=== PATIENT | female | born 1945 | race Caucasian/White ===

== ENCOUNTER → 2018-10-19 | Outpatient (CLI) | payer MEDICARE ==
--- NOTE | 2018-10-19 23:33 | MR ---
EXAMINATION TYPE: MR lumbar spine wo con DATE OF EXAM: 10/19/2018 COMPARISON: None HISTORY: Lumbago with sciatica, bilateral TECHNIQUE: Multiplanar, multisequence images of the lumbar spine were acquired. Lumbar vertebra have normal alignment. Disc spaces are fairly normal. The neuroforamina are fairly we ll-maintained. There is no compression fracture. Posterior elements are intact. I see no fracture. Th ere is no lumbar paraspinal mass. Sacroiliac joints are not well seen. I see no focal bone destructio n. Lumbar nerve roots appear normal. IMPRESSION: Negative MR scan of the lumbar spine. Spine appears fairly normal for age.. Minor degenerative disc s ignal changes. No spinal stenosis.
== END ==
LOC: RADMRIMAIN 14:55
PROVIDERS: ATTEND Family Medicine
DX: M51.36 Other intervertebral disc degeneration, lumbar region (principal)
CPT/HCPCS: 72148

== ENCOUNTER → 2021-08-01 | Outpatient (CLI) | payer MEDICARE ==
--- NOTE | 2021-08-01 09:54 | MR ---
MRI CERVICAL SPINE: CLINICAL HISTORY: Cervicalgia. TECHNIQUE: Multiplanar, multisequence imaging of the cervical spine is performed without and with IV contrast, 7 cc of gadolinium was given intravenously. COMPARISON: None. FINDINGS: Slight scoliotic curvature and coronal images. Sagittal images of the cervical spine show t he craniocervical junction to appear within normal limits. The cervical and upper thoracic spinal co rd is normal in course, caliber, and signal. Artifact from anterior fusion plate C5-C7 levels is pres ent. The vertebral body and intravertebral disk heights are normal above and below surgical levels. The bone marrow signal intensity is within normal limits above and below surgical levels. No suspici ous postcontrast enhancement. Axial images show C2-C3 level to appear within normal limits. Axial images at C3-C4 level shows a left paracentral disc protrusion and some uncovertebral facet spu rring, there is effacement of the left anterolateral thecal sac and asymmetric [id number] left- sided neural foraminal narrowing. Axial images at C4-C5 level showed broad based left paracentral disc protrusion effacing anterolatera l thecal sac and causing moderate to severe left-sided neural foraminal narrowing. Patent right-sided neural foramina. Axial images at C5-C6 and C6-C7 levels show artifact from surgical change and probable metallic disc material. Spinal canal is preserved in bilateral neural foramina are patent. Axial images at C7-T1 levels appear within normal limits. IMPRESSION: Surgical change C5-C7 levels with satisfactory alignment. Some degenerative changes C3-C4 and C4-C5 level are seen as detailed above.
== END | disposition home or self-care (01) ==
LOC: RADMRIMAIN 08:05
PROVIDERS: ATTEND Orthopaedic Surgery Orthopaedic Surgery of the Spine
DX: M47.812 Spondylosis without myelopathy or radiculopathy, cervical region (principal); M50.221 Other cervical disc displacement at C4-C5 level; M99.71 Connective tissue and disc stenosis of intervertebral foramina of cervical region
CPT/HCPCS: 72156; A9585

== ENCOUNTER → 2021-09-19 | Outpatient (CLI) | payer MEDICARE | END | disposition home or self-care (01) | LOC: LABWHC1 11:01 | PROVIDERS: ATTEND Surgery Plastic and Reconstructive Surgery | DX: Z20.822 Contact with and (suspected) exposure to COVID-19 (principal) | CPT/HCPCS: U0003; C9803; U0005 ==

== ENCOUNTER 2021-09-24 07:58 | Day surgery (SDC) | payer MEDICARE ==
[2021-08-08 15:47] VITALS: BMI 27.4
--- NOTE | 2021-09-24 07:49 | P.GSHP ---
History of Present Illness H&P Date: 09/24/21 CHIEF COMPLAINT: Colon screen HISTORY OF PRESENT ILLNESS: The patient is a 76-year-old female who presents for colon screen. Lower endoscopy was offered for further evaluation and management. PAST MEDICAL HISTORY: Please see list. PAST SURGICAL HISTORY: Please see list. MEDICATIONS: Please see list. ALLERGIES: Please see list. SOCIAL HISTORY: No illicit drug use FAMILY HISTORY: No reports of Crohn disease or ulcerative colitis. REVIEW OF ORGAN SYSTEMS: CONSTITUTIONAL: No reports of fevers or chills. PHYSICAL EXAM: VITAL SIGNS: Stable GENERAL: Well-developed pleasant in no acute distress. HEENT: No scleral icterus. Extraocular movements grossly intact. Moist buccal mucosa. NECK: Supple without lymphadenopathy. CHEST: Unlabored respirations. Equal bilateral excursions. CARDIOVASCULAR: Regular rate and rhythm. Distal 2+ pulses. ABDOMEN: Soft, nontender, nondistended. MUSCULOSKELETAL: No clubbing, cyanosis, or edema. ASSESSMENT: 1. Colon screen. PLAN: 1. Recommend proceeding with a lower endoscopy Past Medical History Past Medical History: GERD/Reflux, Hyperlipidemia Additional Past Medical History / Comment(s): HX COVID 2020, hx migraines, loose stools. History of Any Multi-Drug Resistant Organisms: None Reported Additional Past Surgical History / Comment(s): Hemmorhoidectomy, 3 cadaver bones in neck. Past Anesthesia/Blood Transfusion Reactions: Motion Sickness Past Psychological History: No Psychological Hx Reported Smoking Status: Never smoker Past Alcohol Use History: None Reported Past Drug Use History: None Reported - Past Family History Mother Family Medical History: No Reported History Medications and Allergies Home Medications Medication Instructions Recorded Confirmed Type Calcium Carbonate [Calcium] 1,200 mg PO DAILY 08/08/21 09/18/21 History Cyanocobalamin (Vitamin B-12) 1,500 mcg PO DAILY 08/08/21 09/18/21 History [Vitamin B-12] Cyclobenzaprine [Flexeril] 10 mg PO HS 08/08/21 09/18/21 History Gabapentin [Neurontin] 100 mg PO HS 08/08/21 09/18/21 History Ibuprofen/Diphenhydramine Cit 1 each PO HS 08/08/21 09/18/21 History [Ibuprofen Pm Caplet] Potassium Gluconate [Potassium 99 mg PO DAILY 08/08/21 09/18/21 History Gluconate ER] Vitamin D Tab 1 tab PO DAILY 08/08/21 09/18/21 History Allergies Allergy/AdvReac Type Severity Reaction Status Date / Time erythromycin base AdvReac muscle pain Verified 09/18/21 14:22 [From Staticin] ethyl alcohol [From Staticin] AdvReac muscle pain Verified 09/18/21 14:22
[~2021-09-24 07:58] MED LIST: LACTATED RINGERS 1,000 ML IV SCH; LIDOCAINE 1% (10MG/ML) FOR IV START INTRADERMA PRN
[2021-09-24 08:30] VITALS: TEMP 97.9
[2021-09-24] MEDS ORDERED: LIDOCAINE 1% INJ 10MG/ML (20 ML MDV) ONE (08:54)
[2021-09-24] MEDS ORDERED: PROPOFOL 10 MG/ML 20 ML VIAL IV ONE (08:54)
--- NOTE | 2021-09-24 09:32 | P.PCN ---
Date of Procedure: 09/24/21 Description of Procedure: PREOPERATIVE DIAGNOSIS: Personal history colon polyps Colonoscopy screening. POSTOPERATIVE DIAGNOSIS: Personal history colon polyps Colonoscopy screening. Sigmoid diverticulosis OPERATION: Colonoscopy to the cecum, ileocecal valve and appendiceal orifice. SURGEON: Sandie Hernandez MD. ANESTHESIA: MAC. INDICATIONS: The patient is a 76-year-old female who presents for colonoscopy screening. Last colonoscopy 3 years ago. Benefits and risks were described and informed consent was obtained. DESCRIPTION OF PROCEDURE: The patient had undergone Sutab prep. The patient had been brought into the operating room and laid in the left lateral decubitus position. After adequate intravenous sedation, the rectum was examined with 2% lidocaine jelly. No external hemorrhoids were encountered. The rectal tone was within normal limits. No lesions were palpated in the rectal vault. An Olympus colonoscope was advanced until the cecum, ileocecal valve and appendiceal orifice were clearly viewed. The prep was excellent. Severe sigmoid and diverticulosis was encountered. No colonic polyps were found. No evidence of focal colitis was found. Retroflexion of the scope demonstrated grade 1 internal hemorrhoids without active bleeding or inflammation. The colon was desufflated. The patient had tolerated the procedure well. Withdrawal time was over 6 minutes. FINDINGS: Aronchick preparation quality scale 1 (1-5) Internal hemorrhoids, grade 1 No external prolapsed hemorrhoids. No arteriovenous malformations. No adenomatous polyps. Severe sigmoid diverticulosis Redundant sigmoid colon requiring abdominal wall pressure. No focal colitis. RECOMMENDATIONS: Lower endoscopy in 5 years, 2026 Plan - Discharge Summary Discharge Rx Participant: No New Discharge Prescriptions: Continue Gabapentin [Neurontin] 100 mg PO HS Potassium Gluconate [Potassium Gluconate ER] 99 mg PO DAILY Vitamin D Tab 1 tab PO DAILY Cyclobenzaprine [Flexeril] 10 mg PO HS Ibuprofen/Diphenhydramine Cit [Ibuprofen Pm Caplet] 1 each PO HS Cyanocobalamin (Vitamin B-12) [Vitamin B-12] 1,500 mcg PO DAILY Calcium Carbonate [Calcium] 1,200 mg PO DAILY Discharge Medication List Calcium Carbonate [Calcium] 1,200 mg PO DAILY 08/08/21 [History] Cyanocobalamin (Vitamin B-12) [Vitamin B-12] 1,500 mcg PO DAILY 08/08/21 [History] Cyclobenzaprine [Flexeril] 10 mg PO HS 08/08/21 [History] Gabapentin [Neurontin] 100 mg PO HS 08/08/21 [History] Ibuprofen/Diphenhydramine Cit [Ibuprofen Pm Caplet] 1 each PO HS 08/08/21 [History] Potassium Gluconate [Potassium Gluconate ER] 99 mg PO DAILY 08/08/21 [History] Vitamin D Tab 1 tab PO DAILY 08/08/21 [History] Follow up Appointment(s)/Referral(s): Sandie Hernandez MD [STAFF PHYSICIAN] - As Needed Patient Instructions/Handouts: Diverticulosis Diet (GEN), Diverticulosis (DC) Activity/Diet/Wound Care/Special Instructions: Repeat colonoscopy in 5 years, 2026 Discharge Disposition: HOME SELF-CARE
[2021-09-24 09:54] VITALS: BP 153/78; PULSE 84; RESP 20
== END 2021-09-24 10:36 | disposition home or self-care (01) ==
LOC: ORWHC2ENDO 07:58
PROVIDERS: ATTEND Surgery Plastic and Reconstructive Surgery
DX: Z12.11 Encounter for screening for malignant neoplasm of colon (principal); Z86.010 Personal history of colon polyps; K57.30 Diverticulosis of large intestine without perforation or abscess without bleeding; K64.0 First degree hemorrhoids; K21.9 Gastro-esophageal reflux disease without esophagitis; E78.5 Hyperlipidemia, unspecified; Z86.16 Personal history of COVID-19; G43.909 Migraine, unspecified, not intractable, without status migrainosus; Z98.890 Other specified postprocedural states; Z88.1 Allergy status to other antibiotic agents; Z79.1 Long term (current) use of non-steroidal anti-inflammatories (NSAID); Z79.899 Other long term (current) drug therapy; R19.7 Diarrhea, unspecified
CPT/HCPCS: J2001; J2704; G0105

== ENCOUNTER → 2024-11-27 | Outpatient (CLI) | payer MEDICARE ==
--- NOTE | 2024-11-27 09:31 | NM ---
EXAMINATION TYPE: NM hepatobiliary w EF DATE OF EXAM: 11/27/2024 9:06 AM COMPARISON: None CLINICAL INDICATION:Female, 79 years old with history of K57.32 DVTRCLI OF LG INT W/O PERFORATION OR ABSCES; TECHNIQUE: The patient was given 4.91 mCi of Technetium 99m-Mebrofenin as a radiotracer and multiple scintigraphic images were obtained of the abdomen. Gallbladder function was also assessed after the administration of ensure drink and additional scintigraphic images were obtained of the abdomen. A re gion of interest was drawn over the gallbladder and a timing activity curve was generated. The gallbl adder ejection fraction was calculated. FINDINGS: Normal uptake of radiotracer was identified within the liver with excretion into the hepatic and comm on biliary ducts within 12 min. There was normal progressive washout of the liver over the course of the study. Radiotracer uptake within the gallbladder at 24 minutes as well as small bowel activity wa s identified at 18 minutes. Maximum calculated gallbladder ejection fraction is: 84% at 30 minutes (Normal gallbladder ejection fraction is > 35%) IMPRESSION: 1. Normal hepatobiliary scan. 2. Normal ejection fraction. [facility], , 11/27/2024 9:29 AM
== END | disposition home or self-care (01) ==
LOC: RADNMMAIN 06:49
PROVIDERS: ATTEND Surgery Plastic and Reconstructive Surgery
DX: K57.32 Diverticulitis of large intestine without perforation or abscess without bleeding (principal)
CPT/HCPCS: 78226; A9537

== ENCOUNTER 2024-11-30 09:33 | Day surgery (SDC) | payer MEDICARE ==
[2024-11-28 13:18] VITALS: BMI 25.9
--- NOTE | 2024-11-30 08:35 | P.GSHP ---
History of Present Illness H&P Date: 11/30/24 CHIEF COMPLAINT: GERD and colon screen HISTORY OF PRESENT ILLNESS: The patient is a 79-year-old female who presents with gastroesophageal reflux disease and need for colon screen. Upper and lower endoscopy were offered for further evaluation and management. PAST MEDICAL HISTORY: Please see list. PAST SURGICAL HISTORY: Please see list. MEDICATIONS: Please see list. ALLERGIES: Please see list. SOCIAL HISTORY: No illicit drug use FAMILY HISTORY: No reports of Crohn disease or ulcerative colitis. REVIEW OF ORGAN SYSTEMS: CONSTITUTIONAL: No reports of fevers or chills. GI: Denies any blood in stools or constipation. PHYSICAL EXAM: VITAL SIGNS: Stable GENERAL: Well-developed pleasant in no acute distress. HEENT: No scleral icterus. Extraocular movements grossly intact. Moist buccal mucosa. NECK: Supple without lymphadenopathy. CHEST: Unlabored respirations. Equal bilateral excursions. CARDIOVASCULAR: Regular rate and rhythm. Distal 2+ pulses. ABDOMEN: Soft, nondistended. MUSCULOSKELETAL: No clubbing, cyanosis, or edema. ASSESSMENT: 1. Gastroesophageal reflux disease 2. Colon screen. PLAN: 1. Recommend proceeding with an upper and lower endoscopy Past Medical History Past Medical History: GERD/Reflux, Hyperlipidemia Additional Past Medical History / Comment(s): HX COVID 2020, hx migraines, loose stools. History of Any Multi-Drug Resistant Organisms: None Reported Past Surgical History: Tonsillectomy Additional Past Surgical History / Comment(s): Hemorrhoidectomy, Cadaver bones to cervical neck from several falls. Past Anesthesia/Blood Transfusion Reactions: No Reported Reaction, Motion Sickness Smoking Status: Never smoker - Past Family History Mother Family Medical History: No Reported History Medications and Allergies Home Medications Medication Instructions Recorded Confirmed Type No Known Home Medications 11/28/24 11/28/24 History Allergies Allergy/AdvReac Type Severity Reaction Status Date / Time erythromycin base AdvReac muscle pain Verified 09/18/21 14:22 [From Staticin] ethyl alcohol [From Staticin] AdvReac muscle pain Verified 09/18/21 14:22
[~2024-11-30 09:33] MED LIST changes: -LACTATED RINGERS 1,000 ML IV SCH
[2024-11-30 10:00] VITALS: TEMP 98.4
[2024-11-30] MEDS: IV FLUID CONTINUATION 1,000 ML IV ONE (10:05)
[2024-11-30] MEDS: LACTATED RINGERS 1,000 ML IV SCH (10:05)
[2024-11-30] MEDS ORDERED: PROPOFOL 10 MG/ML 20 ML VIAL IV ONE (11:14)
[2024-11-30] MEDS ORDERED: LIDOCAINE 1% INJ 10MG/ML (20 ML MDV) ONE (11:14)
--- NOTE | 2024-11-30 11:56 | P.PCN ---
Date of Procedure: 11/30/24 Description of Procedure: PREOPERATIVE DIAGNOSIS: Diverticulosis POSTOPERATIVE DIAGNOSIS: Sigmoid diverticulosis with bowel obstruction External hemorrhoid, grade 3 OPERATION: Colonoscopy to the sigmoid colon. SURGEON: Sandie Hernandez MD. ANESTHESIA: MAC. INDICATIONS: The patient is a 79-year-old female who presents with diverticulosis no change in bowel habits and abdominal pain benefits and risks were described and informed consent was obtained. DESCRIPTION OF PROCEDURE: The patient had undergone Suprep. She had been brought into the operating room and laid in the left lateral decubitus position. After adequate intravenous sedation, the rectum was examined with 2% lidocaine jelly. External hemorrhoids were encountered. The rectal tone was loose. No lesions were palpated in the rectal vault. An Olympus colonoscope was advanced along the rectum to a very tortuous sigmoid colon with multiple pockets of sigmoid diverticulosis and partial obstruction 30 cm. The scope was then exchanged for a pediatric colonoscope. Despite multiple maneuvers, the sigmoid colon had severe tortuosity preventing further advancement of scope. The scope was passed to 30 cm from the anal verge. No evidence of polyps were identified. As the patient posed high risk for perforation with persistence of the procedure, the procedure was discontinued. The colon was desufflated. The patient had tolerated the procedure well. Withdrawal time was over 6 minutes. FINDINGS: Aronchik preparation quality scale 1 (1-5) Tortuous sigmoid colon with stricture and severe diverticulosis preventing further advancement of the scope. External prolapsed hemorrhoids, grade 3 Internal hemorrhoid, grade 1 Scope advanced to sigmoid colon at 30 cm. No arteriovenous malformations to sigmoid colon No adenomatous polyps to sigmoid colon No focal colitis the sigmoid colon RECOMMENDATIONS: Completion of colonoscopy evaluation with barium enema.
--- NOTE | 2024-11-30 12:12 | P.PCN ---
Date of Procedure: 11/30/24 Description of Procedure: PREOPERATIVE DIAGNOSIS: Gastroesophageal reflux disease Dysphagia POSTOPERATIVE DIAGNOSIS: Lower esophageal stenosis Gastritis Diaphragmatic hiatal hernia OPERATION: Esophagogastroduodenoscopy with balloon dilation, 20 mm balloon. Esophagogastroduodenoscopy with cold forceps biopsies stomach/antrum, esophagus, duodenum SURGEON: Sandie Hernandez MD ANESTHESIA: MAC. INDICATIONS: The patient is a 53-year-old male who presents with a history of gastroesophageal reflux disease with abdominal pain. Benefits and risks of the procedure were described. Informed consent was obtained. DESCRIPTION: The patient was brought into the endoscopy suite and laid in the left lateral decubitus position. After a timeout was confirmed, the procedure was initiated. An Olympus gastroscope was passed into the posterior oropharynx where an upper esophageal stenosis was identified. The scope was passed down to the distal esophagus. To address the upper esophageal stenosis, rigid dilator over guidewire was selected. Next using an [place] rigid dilator, a guidewire was placed through the gastroscope. Next the scope was withdrawn. A 20 mm [employer] balloon was used to dilate the lower esophageal sphincter for distal esophageal spasm/stenosis. Within the stomach, gastritis with gastric ulcerations were identified along the body of the stomach with cold forceps biopsies obtained. The lower esophageal valve was evaluated with Hill grade 2 lower esophageal valve. LA grade B erosive esophagitis was identified. No full-thickness injury was encountered. The GI tract was desufflated. Then the procedure, patient had acute esophageal/bronchial spasms requiring airbag mask ventilation which resolved. The patient tolerated the procedure well. FINDINGS: Upper esophageal stenosis dilated 57-Indian rigid dilator Diaphragmatic hiatus at 40 cm from the incisors Squamocolumnar junction 42 cm from the incisors. Gastritis along the gastric body and fundus cold forceps biopsies obtained Duodenum with biopsies obtained LA grade B erosive esophagitis. Biopsies obtained Hill grade 3 lower esophageal valve. RECOMMENDATIONS: Upper endoscopy as needed Plan - Discharge Summary Discharge Rx Participant: Yes New Discharge Prescriptions: Continue No Known Home Medications Discharge Medication List No Known Home Medications 11/28/24 [History] Follow up Appointment(s)/Referral(s): Sandie Hernandez MD [STAFF PHYSICIAN] - 12/19/24 10:30 am Patient Instructions/Handouts: Barium Enema (ED), Diverticulosis Diet (GEN), Esophageal Dilation (DC) Activity/Diet/Wound Care/Special Instructions: Avoid seeds, popcorn, peanuts, nuts, tomatoes, cucumbers seeds, cells Discharge Disposition: HOME SELF-CARE
[2024-11-30 12:48] VITALS: BP 147/77; PULSE 75; RESP 18
--- NOTE | 2024-11-30 13:08 | P.PN ---
Progress Note - Text Progress Note Date: 11/30/24 Due to large bowel obstruction identified, semiurgent colectomy described. Patient has not had a cardiac risk assessment. Twelve-lead EKG ordered. I personally contacted patient's primary care provider regarding authorization for cardiac risk assessment. Additional studies for gallbladder disease including ultrasound, CT of the abdomen pelvis for diverticulitis are pending as well.
== END 2024-11-30 13:09 | disposition home or self-care (01) ==
LOC: ORWHC2ENDO 09:33
PROVIDERS: ATTEND Surgery Plastic and Reconstructive Surgery
DX: K29.50 Unspecified chronic gastritis without bleeding (principal); K56.699 Other intestinal obstruction unspecified as to partial versus complete obstruction; K57.30 Diverticulosis of large intestine without perforation or abscess without bleeding; K64.4 Residual hemorrhoidal skin tags; K21.9 Gastro-esophageal reflux disease without esophagitis; K22.2 Esophageal obstruction; K44.9 Diaphragmatic hernia without obstruction or gangrene; Z88.1 Allergy status to other antibiotic agents; E78.5 Hyperlipidemia, unspecified
CPT/HCPCS: 88305; 43239; 45330; 43249; J2003; J2704; C1726

== ENCOUNTER → 2024-12-01 | Outpatient (CLI) | payer MEDICARE ==
--- NOTE | 2025-02-05 12:39 | FL ---
EXAMINATION TYPE: FL barium enema DATE OF EXAM: 12/01/2024 COMPARISON: CLINICAL INDICATION: Female, 79 years old with history of K56.609 UNSP INTESTNL OBST, UNSP TO PART IAL DENA; PH[facility], TECHNIQUE: A air contrast barium enema study is performed. A total of 91 seconds of fluoroscopic ti me was utilized during procedure and images obtained. Total dose area product (DAP) in uGy*m?, mGy*c m? (or similar): . FINDINGS: Metallurgical Engineering Technician view of the abdomen shows overall non-obstructive bowel gas pattern. No evidence of any mass or polyp, obstructing or constricting lesion throughout the colon. Moderate s igmoid diverticulosis as well as scattered diverticula throughout the colon. Circular muscle hypertro phy within the region of the sigmoid colon. Appendix was filled and appeared normal. The terminal il eum was refluxed and appears within normal limits. IMPRESSION: Diverticulosis without diverticulitis. Otherwise unremarkable study. [facility], , 12/01/2024 11:48 AM
== END | disposition home or self-care (01) ==
LOC: RADFLMAIN 07:23
PROVIDERS: ATTEND Surgery Plastic and Reconstructive Surgery
DX: K56.609 Unspecified intestinal obstruction, unspecified as to partial versus complete obstruction (principal)
CPT/HCPCS: 74270

== ENCOUNTER → 2024-12-05 | Outpatient (CLI) | payer MEDICARE ==
--- NOTE | 2024-12-05 08:01 | US ---
EXAMINATION TYPE: US gallbladder DATE OF EXAM: 12/05/2024 COMPARISON: NONE CLINICAL INDICATION: Female, 79 years old with history of K57.32 DVTRCLI OF LG INT W/O PERFORATION OR ABSCES; RUQ pain TECHNIQUE: Grayscale and color Doppler imaging of the right upper quadrant. FINDINGS: EXAM MEASUREMENTS: Liver Length: 12..9 cm Gallbladder Wall: 0.2 cm CBD: 0.4 cm, color Doppler imaging was utilized to isolate the common bile duct for measurement. Right Kidney: 10.5x3.4x5.2 cm CHIEF BUSINESS OFFICER NOTES: Pancreas: Tail obscured by overlying bowel gas Liver: no abnormalities seen Gallbladder: No stones seen Evidence for sonographic Conrad's sign: No CBD: wnl Right Kidney: Anechoic area seen (sup): 2.5x1.9x2.5cm IMPRESSION: 1. Superior pole right renal cyst [facility], , 12/05/2024 7:59 AM
[2024-12-05 08:31] LABS: African American GFR (CKD) 82 (>60 ml/min/1.73 sqM); Blood Urea Nitrogen 14 mg/dL (7-17); Non-African American GFR(CKD) 72 (>60 ml/min/1.73 sqM)
--- NOTE | 2024-12-06 18:17 | CT ---
EXAMINATION TYPE: CT abdomen pelvis w con DATE OF EXAM: 12/05/2024 9:23 AM COMPARISON: None. CLINICAL INDICATION: Female, 79 years old with history of R10.11 RUQ PAIN, RUQ PAIN TECHNIQUE: Axial images were obtained from above the diaphragm to the pubic rami in the axial plane a t 5 mm thick sections. Reconstructed images are reviewed on the computer in the coronal plane. CONTRAST: 80 ML mL of Isovue 300. Study performed with Oral Contrast DLP: 522.3 mGycm, Automated exposure control for dose reduction was used. FINDINGS: Limited CT sections are obtained the lung bases. The lung bases are clear. CT ABDOMEN: Liver: Normal Spleen: Normal Pancreas: Normal Adrenal glands: The adrenal glands are normal. Gallbladder: Normal Kidneys: No masses are evident. No hydronephrosis is present. There is a 2.2 cm cyst at the superio r pole posterior medial aspect right kidney. Delayed images were obtained through the kidneys, which remain unremarkable. Aorta: Vascular calcification is within the aorta. Inferior vena cava: Normal. CT PELVIS: Multiple phleboliths are within the pelvis Loops of bowel within the abdomen and pelvis are normal. Diverticular changes of the sigmoid colon. N o adjacent inflammatory changes to suggest acute diverticulitis is evident. There are loops of bow el which are incompletely distended or lack oral contrast limiting their evaluation. Appendix: Normal as visualized. Urinary bladder: Normal. Genitourinary structures: Uterus is unremarkable. Adnexa are normal. Osseous structures: No suspicious lytic or sclerotic lesions. IMPRESSION: 1. Diverticulosis without acute diverticulitis. 2. Superior right renal cyst [facility], , 12/06/2024 6:14 PM
== END | disposition home or self-care (01) ==
LOC: RADUSWWP 07:05
PROVIDERS: ATTEND Surgery Plastic and Reconstructive Surgery
DX: K57.32 Diverticulitis of large intestine without perforation or abscess without bleeding (principal); N28.1 Cyst of kidney, acquired
CPT/HCPCS: 82565; 84520; 76705; 74177; 36415; Q9967

== ENCOUNTER 2025-01-11 08:47 | Emergency (ER) | payer MEDICARE ==
[2025-01-11 10:07] LABS: Basophils # (A) 0.05 10*3/uL (0.00-0.10); Basophils % (A) 0.7 %; Eosinophils # (A) 0.23 10*3/uL (0.04-0.35); Eosinophils % (A) 3.4 %; HCT 36.4 % (37.2-46.3); HGB 12.1 g/dL (12.0-15.0); Lymphocytes # (A) 2.05 10*3/uL (0.90-5.00); Lymphocytes % (A) 30.2 %; MCH 30.2 pg (27.0-32.0); MCHC 33.2 g/dL (32.0-37.0); MCV 90.8 fL (80.0-97.0); Mean Platelet Volume 9.3 fL (9.5-12.2); Monocytes # (A) 0.44 10*3/uL (0.20-1.00); Monocytes % (A) 6.5 %; Neutrophils % (A) 58.9 %; Platelet Count 351 10*3/uL (140-440); RBC 4.01 10*6/uL (4.10-5.20); RDW 13.5 % (11.5-14.5); WBC 6.79 10*3/uL (4.50-10.00)
--- NOTE | 2025-01-11 10:20 | ED ---
Abdominal Pain HPI - General Chief Complaint: Abdominal Pain Stated Complaint: pre-op CT Time Seen by Provider: 01/11/25 09:03 Source: patient, RN notes reviewed Mode of arrival: ambulatory Limitations: no limitations - History of Present Illness Initial Comments: 79-year-old female presents emergency department complaint of abdominal pain, abdominal bloating. Patient states she is scheduled for surgery at the end of the month with Dr. Hernandez for colonic stricture. Patient states that symptoms are worsening and she was advised to come to emergency department for imaging by her surgeon. Patient denies any fevers or chills she states she did pass some stool today she denies chest pain shortness of breath she states she has not eaten anything since yesterday and still feels very bloated. - Related Data Previous Rx's Medication Instructions Recorded Amoxic-Pot Clav 875-125Mg 1 tab PO Q12HR #20 tab 01/11/25 [Augmentin 875-125] Lactulose [Cephulac] 30 gm PO BID #300 ml 01/11/25 Allergies Allergy/AdvReac Type Severity Reaction Status Date / Time erythromycin base AdvReac muscle pain Verified 11/30/24 09:52 [From Staticin] ethyl alcohol [From Staticin] AdvReac muscle pain Verified 11/30/24 09:52 Review of Systems ROS Statement: Those systems with pertinent positive or pertinent negative responses have been documented in the HPI. ROS Other: All systems not noted in ROS Statement are negative. Past Medical History Past Medical History: GERD/Reflux, Hyperlipidemia Additional Past Medical History / Comment(s): HX COVID 2020, hx migraines, loose stools. History of Any Multi-Drug Resistant Organisms: None Reported Additional Past Surgical History / Comment(s): Hemmorhoidectomy, 3 cadaver bones in neck. Past Anesthesia/Blood Transfusion Reactions: Motion Sickness Past Psychological History: No Psychological Hx Reported Smoking Status: Never smoker - Past Family History Mother Family Medical History: No Reported History General Exam Limitations: no limitations General appearance: alert, in no apparent distress Head exam: Present: atraumatic, normocephalic, normal inspection Eye exam: Present: normal appearance, PERRL, EOMI. Absent: scleral icterus, conjunctival injection, periorbital swelling ENT exam: Present: normal exam, normal oropharynx, mucous membranes moist Neck exam: Present: normal inspection, full ROM. Absent: tenderness, meningismu s, lymphadenopathy Respiratory exam: Present: normal lung sounds bilaterally. Absent: respiratory distress, wheezes, rales, rhonchi, stridor Cardiovascular Exam: Present: regular rate, normal rhythm, normal heart sounds. Absent: systolic murmur, diastolic murmur, rubs, gallop, clicks GI/Abdominal exam: Present: soft, distended, tenderness, normal bowel sounds. Absent: guarding, rebound, rigid Back exam: Absent: CVA tenderness (R), CVA tenderness (L) Neurological exam: Present: alert, oriented X3, CN II-XII intact Skin exam: Present: warm, dry, intact, normal color. Absent: rash Course Vital Signs 01/11/25 01/11/25 08:54 12:38 Temperature 98.8 F 98.2 F Pulse Rate 79 66 Respiratory 20 18 Rate Blood Pressure 167/109 137/70 O2 Sat by Pulse 98 96 Oximetry Medical Decision Making - Medical Decision Making Was pt. sent in by a medical professional or institution (, PA, CLOUD ADMINISTRATOR, urgent care, hospital, or shelter...) When possible be specific @ -Dr. Hernandez surgeon Did you speak to anyone other than the patient for history (EMS, parent, family, police, friend...)? What history was obtained from this source @ -No Did you review nursing and triage notes (agree or disagree)? Why? @ -I reviewed and agree with nursing and triage notes Were old charts reviewed (outside hosp., previous admission, EMS record, old EKG, old radiological studies, urgent care reports/EKG's, shelter records)? Report findings @ -No old charts were reviewed Differential Diagnosis (chest pain, altered mental status, abdominal pain women, abdominal pain men, vaginal bleeding, weakness, fever, dyspnea, syncope, headache, dizziness, GI bleed, back pain, seizure, CVA, palpatations, mental health, musculoskeletal)? @ -Differential Abdominal Pain Women: Appendicitis, Cholecystitis, diverticulosis, ischemic bowel, pancreatitis, hepatitis, UTI, gastroenteritis, AAA, incarcerated hernia, bowel obstruction, constipation, inflammatory bowel, hepatitis, peptic ulcer disease, splenic infarction, perforated viscus, vulvitis, ovarian torsion, PID, kidney stone, placenta abruption, this is not meant to be an all-inclusive list EKG interpreted by me (3pts min.). @None X-rays interpreted by me (1pt min.). @ -None done CT interpreted by me (1pt min.). @ -CT acute abdomen pelvis showing evidence of redundant colon, diverticulosis no obstruction U/S interpreted by me (1pt. min.). @ -None done What testing was considered but not performed or refused? (CT, X-rays, U/S, labs)? Why? @ -None What meds were considered but not given or refused? Why? @ -None Did you discuss the management of the patient with other professionals (prof minnie i.e. , PA, CLOUD ADMINISTRATOR, lab, RT, psych nurse, psychiatric social worker supervisor, nurse extern, teacher, residential care officer, pillowcase cutter)? Give summary @ -Discussed case with Dr. Ngo regarding CT findings and lab work she advised oral antibiotics and lactulose Was smoking cessation discussed for >3mins.? @ -No Was critical care preformed (if so, how long)? @ -No Were there social determinants of health that impacted care today? How? (Homelessness, low income, unemployed, alcoholism, drug addiction, transportation, low edu. Level, literacy, decrease access to med. care, retirement, rehab)? @ -No Was there de-escalation of care discussed even if they declined (Discuss DNR or withdrawal of care, Hospice)? DNR status @ -No What co-morbidities impacted this encounter? (DM, HTN, Smoking, COPD, CAD, Cancer, CVA, ARF, Chemo, Hep., AIDS, mental health diagnosis, sleep apnea, morbid obesity)? @ -None Was patient admitted / discharged? Hospital course, mention meds given and route, prescriptions, significant lab abnormalities, going to OR and other pertinent info. @ -Discharged patient updated on CT findings and lab results patient was discharged on Augmentin, lactulose as directed by surgeon will follow-up with surgeons office and scheduled surgery return parameters cussed. Undiagnosed new problem with uncertain prognosis? @ -No Drug Therapy requiring intensive monitoring for toxicity (Heparin, Nitro, Insulin, Cardizem)? @ -No Were any procedures done? @ -No Diagnosis/symptom? @ -Abdominal pain diverticulosis, redundant colon Acute, or Chronic, or Acute on Chronic? @ -Acute Uncomplicated (without systemic symptoms) or Complicated (systemic symptoms)? @ -complicated Side effects of treatment? @ -No Exacerbation, Progression, or Severe Exacerbation? @ -No Poses a threat to life or bodily function? How? (Chest pain, USA, MD, pneumonia, PE, COPD, DKA, ARF, appy, cholecystitis, CVA, Diverticulitis, Homicidal, Suicidal, threat to staff... and all critical care pts) @ -No - Lab Data Result diagrams: 01/11/25 09:55 01/11/25 09:55 Lab Results 01/11/25 01/11/25 01/11/25 Range/Units 09:55 09:55 09:55 WBC 6.79 (4.50-10.00) 10*3/uL RBC 4.01 L (4.10-5.20) 10*6/uL Hgb 12.1 (12.0-15.0) g/dL Hct 36.4 L (37.2-46.3) % MCV 90.8 (80.0-97.0) fL MCH 30.2 (27.0-32.0) pg MCHC 33.2 (32.0-37.0) g/dL Plt Count 351 (140-440) 10*3/uL MPV 9.3 L (9.5-12.2) fL Immature Gran % (Auto) 0.3 % Neutrophils % 58.9 % Lymphocytes % 30.2 % Monocytes % 6.5 % Eosinophils % 3.4 % Basophils % 0.7 % Immature Gran # 0.02 (0.00-0.04) 10*3/uL Neutrophils # 4.00 (1.80-7.70) 10*3/uL Lymphocytes # 2.05 (0.90-5.00) 10*3/uL Monocytes # 0.44 (0.20-1.00) 10*3/uL Eosinophils # 0.23 (0.04-0.35) 10*3/uL Basophils # 0.05 (0.00-0.10) 10*3/uL Sodium 139 (137-145) mmol/L Potassium 4.8 (3.5-5.1) mmol/L Chloride 103 (98-107) mmol/L Carbon Dioxide 29 (22-30) mmol/L Anion Gap 7 mmol/L BUN 19 H (7-17) mg/dL Creatinine 0.62 (0.52-1.04) mg/dL Est GFR (CKD-EPI)AfAm >90 (>60 ml/min/1.73 sqM) Est GFR (CKD-EPI)NonAf 87 (>60 ml/min/1.73 sqM) Glucose 96 (74-99) mg/dL Plasma Lactic Acid Robi 0.9 (0.7-2.0) mmol/L Calcium 10.1 (8.4-10.2) mg/dL Total Bilirubin 0.7 (0.2-1.3) mg/dL AST 37 H (14-36) U/L ALT 20 (4-34) U/L Alkaline Phosphatase 61 (38-126) U/L Total Protein 7.4 (6.3-8.2) g/dL Albumin 4.2 (3.5-5.0) g/dL Lipase 246 (23-300) U/L Disposition Clinical Impression: Abdominal pain, Constipation Disposition: HOME SELF-CARE Condition: Stable Instructions (If sedation given, give patient instructions): Abdominal Pain (ED) Additional Instructions: Please return to the Emergency Department if symptoms worsen or any other concerns. Prescriptions: Amoxic-Pot Clav 875-125Mg [Augmentin 875-125] 1 tab PO Q12HR #20 tab Lactulose [Cephulac] 30 gm PO BID #300 ml Is patient prescribed a controlled substance at d/c from ED?: No Referrals: Timo Rico MD [Primary Care Provider] - 1-2 days Time of Disposition: 12:26
[2025-01-11 10:38] LABS: ALT 20 U/L (4-34); African American GFR (CKD) >90 (>60 ml/min/1.73 sqM); Albumin 4.2 g/dL (3.5-5.0); Anion Gap 7 mmol/L; Blood Urea Nitrogen 19 mg/dL (7-17); Calcium 10.1 mg/dL (8.4-10.2); Carbon Dioxide 29 mmol/L (22-30); Chloride 103 mmol/L (98-107); Glucose 96 mg/dL (74-99); Lipase 246 U/L (23-300); Non-African American GFR(CKD) 87 (>60 ml/min/1.73 sqM); Sodium 139 mmol/L (137-145); Total Bilirubin 0.7 mg/dL (0.2-1.3); Total Protein 7.4 g/dL (6.3-8.2)
[2025-01-11 10:59] LABS: AST 37 U/L (14-36); Alkaline Phosphatase 61 U/L (38-126); Potassium 4.8 mmol/L (3.5-5.1)
--- NOTE | 2025-01-11 12:11 | CT ---
EXAMINATION TYPE: CT abdomen pelvis w con DATE OF EXAM: 01/11/2025 11:57 AM COMPARISON: 12/15/2024 CLINICAL INDICATION: Female, 79 years old with history of abdominal pain; ABDOMINAL PAIN. PT SENT BY DR. CASPER DUE TO "TWISTED BOWELS" PER PT. TECHNIQUE: CT of the abdomen and pelvis with IV contrast. Delayed images through the kidneys; Sagitta l and coronal reformats were created on a separate workstation. Contrast used:100 ml mL of Isovue 300 with IV Contrast, Oral contrast used: without Oral Contrast CT DLP: 617.5 mGycm, Automated exposure control for dose reduction was used. FINDINGS: LOWER CHEST: Heart borderline in size without pericardial effusion. ABDOMEN LIVER: Unremarkable GALLBLADDER AND BILE DUCTS: Unremarkable. PANCREAS: Unremarkable. SPLEEN: Unremarkable. ADRENAL GLANDS: Unremarkable. KIDNEYS AND URETERS: 2.3 cm right upper pole renal cyst redemonstrated. Extrarenal pelvis redemonstra te on the right. Symmetric uptake and excretion of contrast from both kidneys. PELVIS BLADDER: No evidence for wall thickening or mass given limitations of exam. REPRODUCTIVE: Uterus anteverted. Numerous pelvic phleboliths. Both ovaries are visualized. Prominent left periuterine varices. No abnormal fluid collection in the pelvis or pelvic lymphadenopathy. ABDOMEN & PELVIS STOMACH AND BOWEL: Tiny hiatal hernia may be present. No evidence of bowel obstruction. Scattered mil d stool. Normal appendix. Sigmoid diverticulosis. Mild to moderately redundant sigmoid colon. No alyson colonic inflammatory change. PERITONEUM/RETROPERITONEUM: No evidence of pneumoperitoneum or free fluid. VASCULATURE: Mild atherosclerotic calcifications abdominal aorta. MUSCULOSKELETAL: Hypertrophic facet arthropathy mid to lower lumbar spine. LYMPH NODES: No gross evidence for lymphadenopathy. SOFT TISSUE/ABDOMINAL WALL: Unremarkable IMPRESSION: 1. Mild to moderately redundant sigmoid colon with diverticulosis. No evidence for acute diverticulit is. Scattered mild stool. 2. Prominent left parauterine varices. Findings are nonspecific but may be seen with pelvic congestio n syndrome. [facility], , 01/11/2025 12:09 PM
[2025-01-11 12:40] VITALS: BP 137/70; PULSE 66; RESP 18; TEMP 98.2
--- NOTE | 2025-01-12 16:40 | P.PN ---
Progress Note - Text Progress Note Date: 01/12/25 Patient contacted at home after going to the emergency room yesterday. CT imaging independent reviewed including labs reviewed. Patient had been given antibiotics including laxative. Patient reports she is taking Ensure protein shakes. She does feel better today. Patient advised to stay well hydrated with 80 ounces of fluids daily in addition to her protein shakes. Patient is scheduled for elective colectomy in 2 weeks. All questions were addressed.
== END 2025-01-11 12:46 | disposition home or self-care (01) ==
LOC: EC 08:47
DX: R10.9 Unspecified abdominal pain (principal); K59.00 Constipation, unspecified; Z88.1 Allergy status to other antibiotic agents; Z91.048 Other nonmedicinal substance allergy status
CPT/HCPCS: 36415; 80053; 83605; 83690; 85025; 74177; 99284; Q9967